=== PATIENT | male | born 1945 | race Caucasian/White ===

== ENCOUNTER 2017-12-16 21:35 | Emergency (ER) | payer OTHER, MEDICARE ==
[~2017-12-16] VITALS: Ht 170.1 cm; Wt 89.4 kg
--- NOTE | ~2017-12-16 | EKG ---
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
--- NOTE | ~2017-12-16 | EKG ---
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
[2017-12-16] MEDS ORDERED: METOPROLOL SUCC50 M1 PO (21:45)
[2017-12-16] MEDS ORDERED: LOSARTAN POTAS100 M1 PO (21:45)
[2017-12-16] MEDS ORDERED: 'CLONIDINE0.1 MG PO (21:45)
[2017-12-16] MEDS ORDERED: IMDUR SA30 MG PO (21:45)
[2017-12-16] MEDS ORDERED: PRASUGREL HCL10 MG PO (21:45)
[2017-12-16] MEDS ORDERED: PROTONIX TR40 M1 PO (21:46)
[2017-12-16 22:03] LABS: BASO # 0.1 10*3/uL (0.0-0.1); BASO % 1.1 % (0.0-1.0); EOS # 0.2 10*3/uL (0.0-0.4); EOS % 2.6 % (1.0-4.0); HEMATOCRIT 33.6 % (42.0-52.0); HEMOGLOBIN 10.9 g/dl (14.0-18.0); LYMPH # 1.9 10*3/uL (1.3-4.4); LYMPH % 28.3 % (27.0-41.0); MEAN CELL VOLUME 94.6 fl (80.0-94.0); MEAN CORPUSCULAR HGB 30.7 pg (27.0-31.0); MEAN CORPUSCULAR HGB CONC 32.4 g/dl (33.0-37.0); MEAN PLATELET VOLUME 9.9 fl (9.6-12.3); MONO # 0.5 10*3/uL (0.1-1.0); MONO % 7.4 % (3.0-9.0); NEUT % 59.8 % (47.0-73.0); PLATELET COUNT AUTOMATED 177 10*3/uL (130-400); RED BLOOD COUNT 3.55 10*6/uL (4.50-5.90); RED CELL DISTRI WIDTH 13.5 % (0-14.5); WHITE BLOOD COUNT 6.7 10*3/uL (4.8-10.8)
[2017-12-16 22:21] LABS: ALBUMIN 3.7 gm/dl (3.1-4.5); ALKALINE PHOSPHATASE 118 U/L (45-117); BUN 24 mg/dl (7-24); CHLORIDE 105 mmol/L (98-107); CREATININE 1.07 mg/dL (0.70-1.30); POTASSIUM 4.2 mmol/L (3.5-5.1); SGOT/AST 37 IU/L (3-35); SGPT/ALT 29 U/L (12-78); SODIUM 140 mmol/L (136-145); TOTAL PROTEIN 7.6 gm/dL (6.4-8.2)
[2017-12-16 22:30] LABS: ACT PARTIAL THROMBO TIME 25.8 SECONDS (20.8-31.5)
== END 2017-12-17 00:35 | disposition short-term general hospital (02) ==
LOC: ED 21:35
PROVIDERS: Student in an Organized Health Care Education/Training Program
DX: S30.1XXA Contusion of abdominal wall, initial encounter (principal); S20.312A Abrasion of left front wall of thorax, initial encounter; S39.91XA Unspecified injury of abdomen, initial encounter; Z79.899 Other long term (current) drug therapy; V49.88XA Car occupant (driver) (passenger) injured in other specified transport accidents, initial encounter; Y93.89 Activity, other specified; Y92.413 State road as the place of occurrence of the external cause; Y99.9 Unspecified external cause status